=== PATIENT | male | born 1960 | race Caucasian/White ===

== ENCOUNTER → 2016-07-03 | Outpatient (CLI) | payer BC ==
[~2016-07-03] MED LIST: /WARF25TA; PERC5TAB8
[2016-07-03 12:12] LABS: ALKALINE PHOSPHATASE 104 U/L (45-117); ALT/SGPT 29 U/L (12-78); ANION GAP 8 MEQ/L (8-16); AST/SGOT 19 U/L (15-37); BILIRUBIN,TOTAL 0.6 MG/DL (0.2-1.0); BLOOD UREA NITROGEN 15 MG/DL (7-18); CALCIUM LEVEL 8.9 MG/DL (8.5-10.1); CARBON DIOXIDE LEVEL 28 MEQ/L (21-32); CHLORIDE LEVEL 104 MEQ/L (98-107); CHOLESTEROL LEVEL 251 MG/DL (<200); CREATININE FOR GFR 1.13 MG/DL (0.70-1.30); GLOMERULAR FILTRATION RATE > 60.0 (>56); GLUCOSE, FASTING 92 MG/DL (70-105); POTASSIUM SERUM 4.9 MEQ/L (3.5-5.1); SODIUM LEVEL 140 MEQ/L (136-145); TOTAL PROTEIN 7.1 GM/DL (6.4-8.2); TRIGLYCERIDES LEVEL 108 MG/DL (<150)
[2016-07-03 12:13] LABS: ALBUMIN 4.2 GM/DL (3.2-5.2); ALBUMIN/GLOBULIN RATIO 1.45 (1.00-1.93)
[2016-07-05 00:10] LABS: PSA TOTAL 0.4 ng/mL (0.0-4.0)
== END ==
LOC: M LRY 10:28
PROVIDERS: ATTEND Nurse Practitioner Family
DX: Z12.5 Encounter for screening for malignant neoplasm of prostate (principal); E55.9 Vitamin D deficiency, unspecified; E78.5 Hyperlipidemia, unspecified

== ENCOUNTER → 2016-09-13 | Outpatient (CLI) | payer BC ==
[2016-09-13 18:09] LABS: ALBUMIN 4.2 GM/DL (3.2-5.2); ALBUMIN/GLOBULIN RATIO 1.24 (1.00-1.93); ALKALINE PHOSPHATASE 111 U/L (45-117); ALT/SGPT 36 U/L (12-78); ANION GAP 7 MEQ/L (8-16); AST/SGOT 13 U/L (15-37); BILIRUBIN,TOTAL 0.7 MG/DL (0.2-1.0); BLOOD UREA NITROGEN 18 MG/DL (7-18); CALCIUM LEVEL 9.2 MG/DL (8.5-10.1); CARBON DIOXIDE LEVEL 28 MEQ/L (21-32); CHLORIDE LEVEL 107 MEQ/L (98-107); CHOLESTEROL LEVEL 171 MG/DL (<200); CREATININE FOR GFR 0.98 MG/DL (0.70-1.30); GLOMERULAR FILTRATION RATE > 60.0 (>56); GLUCOSE, FASTING 90 MG/DL (70-105); SODIUM LEVEL 142 MEQ/L (136-145); TOTAL PROTEIN 7.6 GM/DL (6.4-8.2); TRIGLYCERIDES LEVEL 70 MG/DL (<150)
== END ==
LOC: M LRY 10:49
DX: E78.5 Hyperlipidemia, unspecified (principal)

== ENCOUNTER → 2017-08-28 | Outpatient (CLI) | payer BC ==
[2017-08-28 11:32] LABS: BASO % 0.3 % (0.0-1.0); EOS # 0.2 10^3/uL (0.0-0.50); EOS % 3.7 % (0.0-3.0); HEMATOCRIT 46.2 % (42.0-52.0); IMMATURE GRANULOCYTE % 0.3 % (0-3.0); LYMPH # 1.1 10^3/uL (1.5-4.5); MEAN CORPUSCULAR HGB CONC 34.6 g/dl (32.0-36.5); MEAN CORPUSCULAR VOLUME 86.7 fl (80.0-96.0); MONO # 0.4 10^3/uL (0.0-0.8); MONO % 7.7 % (0.0-5.0); PLATELET COUNT, AUTOMATED 257 10^3/uL (150-450); RED BLOOD COUNT 5.33 10^6/uL (4.30-6.10); RED CELL DISTRIBUTION WIDTH 12.9 % (11.5-14.5); WHITE BLOOD COUNT 5.7 10^3/uL (4.0-10.0)
[2017-08-28 11:51] LABS: TOTAL 25(OH) VITAMIN D 37.6 NG/ML (30.0-100.0)
[2017-08-28 11:52] LABS: ALBUMIN 4.1 GM/DL (3.2-5.2); ALBUMIN/GLOBULIN RATIO 1.24 (1.00-1.93); ALKALINE PHOSPHATASE 111 U/L (45-117); ALT/SGPT 31 U/L (12-78); ANION GAP 3 MEQ/L (8-16); AST/SGOT 17 U/L (7-37); BILIRUBIN,TOTAL 0.7 MG/DL (0.2-1.0); BLOOD UREA NITROGEN 16 MG/DL (7-18); CALCIUM LEVEL 8.9 MG/DL (8.5-10.1); CARBON DIOXIDE LEVEL 29 MEQ/L (21-32); CHLORIDE LEVEL 110 MEQ/L (98-107); CHOLESTEROL LEVEL 161 MG/DL (<200); CREATININE FOR GFR 1.15 MG/DL (0.70-1.30); GLOMERULAR FILTRATION RATE > 60.0 (>56); GLUCOSE, FASTING 97 MG/DL (70-100); HDL CHOLESTEROL 46 MG/DL (>40); LDL CHOLESTEROL 93.6 MG/DL (<100); NON-HDL-C 115 MG/DL; POTASSIUM SERUM 4.5 MEQ/L (3.5-5.1); SODIUM LEVEL 142 MEQ/L (136-145); TOTAL PROTEIN 7.4 GM/DL (6.4-8.2); TRIGLYCERIDES LEVEL 107 MG/DL (<150)
[2017-08-29 14:15] LABS: PSA TOTAL 0.6 ng/mL (0.0-4.0)
== END ==
LOC: M LRY 08:29
DX: K21.9 Gastro-esophageal reflux disease without esophagitis (principal); Z12.5 Encounter for screening for malignant neoplasm of prostate; E55.9 Vitamin D deficiency, unspecified; E78.5 Hyperlipidemia, unspecified
CPT/HCPCS: 80053

== ENCOUNTER → 2018-02-24 | Outpatient (CLI) | payer BC ==
[2018-02-24 11:37] LABS: BASO % 0.2 % (0.0-1.0); EOS # 0.2 10^3/uL (0.0-0.50); EOS % 4.8 % (0.0-3.0); HEMATOCRIT 43.8 % (42.0-52.0); HEMOGLOBIN 15.5 g/dl (13.5-17.5); IMMATURE GRANULOCYTE % 0.2 % (0-3.0); LYMPH # 1.1 10^3/uL (1.5-4.5); LYMPH % 22.8 % (24.0-44.0); MEAN CORPUSCULAR HEMOGLOBIN 30.5 pg (27.0-33.0); MEAN CORPUSCULAR HGB CONC 35.4 g/dl (32.0-36.5); MEAN CORPUSCULAR VOLUME 86.1 fl (80.0-96.0); MONO # 0.4 10^3/uL (0.0-0.8); MONO % 8.7 % (0.0-5.0); NEUTROPHILS # 2.9 10^3/uL (1.8-7.7); NEUTROPHILS % 63.3 % (36.0-66.0); PLATELET COUNT, AUTOMATED 235 10^3/uL (150-450); RED BLOOD COUNT 5.09 10^6/uL (4.30-6.10); RED CELL DISTRIBUTION WIDTH 12.5 % (11.5-14.5); WHITE BLOOD COUNT 4.6 10^3/uL (4.0-10.0)
[2018-02-24 12:15] LABS: ALBUMIN 3.8 GM/DL (3.2-5.2); ALBUMIN/GLOBULIN RATIO 1.27 (1.00-1.93); ALKALINE PHOSPHATASE 102 U/L (45-117); ALT/SGPT 34 U/L (12-78); ANION GAP 6 MEQ/L (8-16); AST/SGOT 16 U/L (7-37); BILIRUBIN,TOTAL 0.7 MG/DL (0.2-1.0); BLOOD UREA NITROGEN 12 MG/DL (7-18); CALCIUM LEVEL 8.6 MG/DL (8.5-10.1); CARBON DIOXIDE LEVEL 25 MEQ/L (21-32); CHLORIDE LEVEL 108 MEQ/L (98-107); CHOLESTEROL LEVEL 158 MG/DL (<200); CHOLESTEROL RISK RATIO 3.224 (<5); CREATININE FOR GFR 1.06 MG/DL (0.70-1.30); GLOMERULAR FILTRATION RATE > 60.0 (>56); GLUCOSE, FASTING 97 MG/DL (70-100); HDL CHOLESTEROL 49 MG/DL (>40); LDL CHOLESTEROL 90 MG/DL (<100); NON-HDL-C 109 MG/DL; POTASSIUM SERUM 4.8 MEQ/L (3.5-5.1); SODIUM LEVEL 139 MEQ/L (136-145); TOTAL PROTEIN 6.8 GM/DL (6.4-8.2); TRIGLYCERIDES LEVEL 94 MG/DL (<150)
== END ==
LOC: M LRY 09:05
DX: K21.9 Gastro-esophageal reflux disease without esophagitis (principal); E55.9 Vitamin D deficiency, unspecified; E78.5 Hyperlipidemia, unspecified
CPT/HCPCS: 80053

== ENCOUNTER → 2018-09-19 | Outpatient (CLI) | payer BC ==
[~2018-09-19] MED LIST changes: -/WARF25TA; +COUM1TAB18
[2018-09-19 18:14] LABS: BASO % 0.2 % (0.0-1.0); EOS # 0.3 10^3/uL (0.0-0.50); EOS % 5.8 % (0.0-3.0); HEMATOCRIT 46.2 % (42.0-52.0); HEMOGLOBIN 15.5 g/dl (13.5-17.5); LYMPH # 1.2 10^3/uL (1.5-4.5); LYMPH % 24.9 % (24.0-44.0); MEAN CORPUSCULAR HEMOGLOBIN 29.4 pg (27.0-33.0); MEAN CORPUSCULAR HGB CONC 33.5 g/dl (32.0-36.5); MEAN CORPUSCULAR VOLUME 87.7 fl (80.0-96.0); MONO # 0.3 10^3/uL (0.0-0.8); MONO % 7.1 % (0.0-5.0); NEUTROPHILS # 2.9 10^3/uL (1.8-7.7); NEUTROPHILS % 61.8 % (36.0-66.0); PLATELET COUNT, AUTOMATED 252 10^3/uL (150-450); RED BLOOD COUNT 5.27 10^6/uL (4.30-6.10); WHITE BLOOD COUNT 4.7 10^3/uL (4.0-10.0)
[2018-09-19 18:26] LABS: ALT/SGPT 33 U/L (12-78); BILIRUBIN,TOTAL 0.7 MG/DL (0.2-1.0); BLOOD UREA NITROGEN 17 MG/DL (7-18); CALCIUM LEVEL 8.9 MG/DL (8.8-10.2); CARBON DIOXIDE LEVEL 30 MEQ/L (21-32); CHLORIDE LEVEL 105 MEQ/L (98-107); CHOLESTEROL LEVEL 151 MG/DL (<200); CHOLESTEROL RISK RATIO 3.871 (<5); CREATININE FOR GFR 1.12 MG/DL (0.70-1.30); GLOMERULAR FILTRATION RATE > 60.0 (>49); GLUCOSE, FASTING 102 MG/DL (70-100); HDL CHOLESTEROL 39 MG/DL (>40); LDL CHOLESTEROL 96 MG/DL (<100); NON-HDL-C 112 MG/DL; POTASSIUM SERUM 4.9 MEQ/L (3.5-5.1); SODIUM LEVEL 141 MEQ/L (136-145); TOTAL PROTEIN 6.9 GM/DL (6.4-8.2); TRIGLYCERIDES LEVEL 78 MG/DL (<150)
[2018-09-21 10:07] LABS: TOTAL 25(OH) VITAMIN D 49.6 NG/ML (30.0-100.0)
[2018-09-22 14:11] LABS: PSA TOTAL 0.8 ng/mL (0.0-4.0)
== END ==
LOC: M WUC 08:27
PROVIDERS: ATTEND Nurse Practitioner Family
DX: E78.5 Hyperlipidemia, unspecified (principal); E55.9 Vitamin D deficiency, unspecified; K21.9 Gastro-esophageal reflux disease without esophagitis

== ENCOUNTER → 2019-10-04 | Outpatient (CLI) | payer BC, OTHER, SELFPAY ==
[~2019-10-04] MED LIST changes: +ATOR40TA75
[2019-10-04 16:31] LABS: ALBUMIN 3.8 GM/DL (3.2-5.2); ALT/SGPT 25 U/L (12-78); BILIRUBIN,TOTAL 0.4 MG/DL (0.2-1.0); BLOOD UREA NITROGEN 16 MG/DL (7-18); CALCIUM LEVEL 8.7 MG/DL (8.8-10.2); CARBON DIOXIDE LEVEL 27 MEQ/L (21-32); CHLORIDE LEVEL 110 MEQ/L (98-107); CHOLESTEROL LEVEL 253 MG/DL (<200); CHOLESTEROL RISK RATIO 5.382 (<5); CREATININE FOR GFR 1.12 MG/DL (0.70-1.30); FREE T4 0.97 NG/DL (0.76-1.46); GLOMERULAR FILTRATION RATE > 60.0 (>49); GLUCOSE, FASTING 94 MG/DL (70-100); HDL CHOLESTEROL 47 MG/DL (>40); LDL CHOLESTEROL 182 MG/DL (<100); NON-HDL-C 206 MG/DL; POTASSIUM SERUM 5.1 MEQ/L (3.5-5.1); SODIUM LEVEL 142 MEQ/L (136-145); TRIGLYCERIDES LEVEL 122 MG/DL (<150)
[2019-10-04 16:39] LABS: BASO % 0.2 % (0.0-1.0); EOS # 0.2 10^3/uL (0.0-0.5); EOS % 4.3 % (0.0-3.0); HEMATOCRIT 44.5 % (42.0-52.0); LYMPH # 1.1 10^3/uL (1.5-5.0); LYMPH % 23.8 % (24.0-44.0); MEAN CORPUSCULAR HEMOGLOBIN 29.9 pg (27.0-33.0); MEAN CORPUSCULAR HGB CONC 33.7 g/dl (32.0-36.5); MEAN CORPUSCULAR VOLUME 88.6 fl (80.0-96.0); MONO # 0.4 10^3/uL (0.0-0.8); MONO % 8.6 % (0.0-5.0); NEUTROPHILS # 2.9 10^3/uL (1.5-8.5); NEUTROPHILS % 62.9 % (36.0-66.0); PLATELET COUNT, AUTOMATED 244 10^3/uL (150-450); RED BLOOD COUNT 5.02 10^6/uL (4.30-6.10); WHITE BLOOD COUNT 4.7 10^3/uL (4.0-10.0)
[2019-10-05 10:31] LABS: TOTAL 25(OH) VITAMIN D 63.6 NG/ML (30.0-100.0)
== END ==
LOC: M LRY 09:09
PROVIDERS: ATTEND Physician Assistant
DX: L82.1 Other seborrheic keratosis (principal); R03.0 Elevated blood-pressure reading, without diagnosis of hypertension; E78.5 Hyperlipidemia, unspecified

== ENCOUNTER → 2020-01-11 | Outpatient (CLI) | payer OTHER ==
[2020-01-11 10:28] LABS: ALBUMIN 3.8 GM/DL (3.2-5.2); ALT/SGPT 25 U/L (12-78); BILIRUBIN,TOTAL 0.5 MG/DL (0.2-1.0); BLOOD UREA NITROGEN 14 MG/DL (7-18); CARBON DIOXIDE LEVEL 27 MEQ/L (21-32); CHLORIDE LEVEL 110 MEQ/L (98-107); CHOLESTEROL LEVEL 162 MG/DL (<200); CHOLESTEROL RISK RATIO 3.056 (<5); CREATININE FOR GFR 1.13 MG/DL (0.70-1.30); GLOMERULAR FILTRATION RATE > 60.0 (>49); GLUCOSE, FASTING 100 MG/DL (70-100); HDL CHOLESTEROL 53 MG/DL (>40); LDL CHOLESTEROL 95 MG/DL (<100); NON-HDL-C 109 MG/DL; POTASSIUM SERUM 4.5 MEQ/L (3.5-5.1); SODIUM LEVEL 141 MEQ/L (136-145); TRIGLYCERIDES LEVEL 72 MG/DL (<150)
== END ==
LOC: M LAB 09:32
PROVIDERS: ATTEND Physician Assistant
DX: E66.3 Overweight (principal); E78.00 Pure hypercholesterolemia, unspecified; Z68.29 Body mass index [BMI] 29.0-29.9, adult

== ENCOUNTER → 2020-01-26 | Outpatient (CLI) | payer OTHER | LOC: M LABSMTC 11:34 | PROVIDERS: ATTEND Anesthesiology | DX: Z01.812 Encounter for preprocedural laboratory examination (principal); Z20.828 Contact with and (suspected) exposure to other viral communicable diseases | CPT/HCPCS: C9803; U0003 ==

== ENCOUNTER 2020-01-31 07:01 | Day surgery (SDC) | payer OTHER ==
[~2020-01-31] VITALS: Ht 180.3 cm; Wt 98.4 kg
[~2020-01-31 07:01] MED LIST changes: +NS 1,000 ML IV ONE
[2020-01-31] MEDS ORDERED: LIDOCAINE 2% 100MG/5ML SDV (FOR ANES.) As Ordered ONE (08:47)
[2020-01-31] MEDS ORDERED: propofoL 200 MG/20 ML VIAL As Ordered ONE (08:52)
--- NOTE | 2020-01-31 09:08 | ROOR ---
Patient Name: Shilo Erazo Procedure Date: 01/31/2020 8:23 AM Date of : 1960 Age: 59 [facility]: [facility] Gender: Male Note Status: Finalized Procedure: Colonoscopy Indications: Screening for colorectal malignant neoplasm, High risk colon cancer surveillance: Personal history of colonic polyps Providers: Toro Gross MD Referring MD: GLENIS Hneriquez Requesting Provider: Medicines: Monitored Anesthesia Care Complications: No immediate complications. Procedure: Pre-Anesthesia Assessment: - Prior to the procedure, a History and Physical was performed, and patient medications and allergies were reviewed. The patient is competent. The risks and benefits of the procedure and the sedation options and risks were discussed with the patient. All questions were answered and informed consent was obtained. Patient identification and proposed procedure were verified by the physician, the nurse and the anesthesiologist in the procedure room. Mental Status Examination: alert and oriented. Airway Examination: normal oropharyngeal airway and neck mobility. Respiratory Examination: clear to auscultation. CV Examination: normal. Prophylactic Antibiotics: The patient does not require prophylactic antibiotics. Prior Anticoagulants: The patient has taken no previous anticoagulant or antiplatelet agents. ASA Grade Assessment: III - A patient with severe systemic disease. After reviewing the risks and benefits, the patient was deemed in satisfactory condition to undergo the procedure. The anesthesia plan was to use monitored anesthesia care (MAC). Immediately prior to administration of medications, the patient was re-assessed for adequacy to receive sedatives. The heart rate, respiratory rate, oxygen saturations, blood pressure, adequacy of pulmonary ventilation, and response to care were monitored throughout the procedure. The physical status of the patient was re-assessed after the procedure. The Colonoscope was introduced through the anus and advanced to the terminal ileum, with identification of the appendiceal orifice and IC valve. The colonoscopy was performed without difficulty. The patient tolerated the procedure well. The quality of the bowel preparation was adequate to identify polyps 6 mm and larger in size and fair. The terminal ileum, ileocecal valve, appendiceal orifice, and rectum were photographed. Scope insertion time was 3 minutes. Scope withdrawal time was 9 minutes. The total duration of the procedure was 12 minutes. Findings: The perianal and digital rectal examinations were normal. The terminal ileum appeared normal. A 6 mm polyp was found in the rectum. The polyp was sessile. The polyp was removed with a cold snare. Resection and retrieval were complete. Verification of patient identification for the specimen was done by the physician and nurse using the patient's name, date and medical record number. Estimated blood loss was minimal. External and internal hemorrhoids were found during retroflexion. The hemorrhoids were medium-sized. A moderate amount of semi-liquid stool was found from sigmoid to transverse colon, interfering with visualization. Lavage of the area was performed using a large amount of sterile water, resulting in clearance with good visualization. Impression: - Preparation of the colon was fair. - The examined portion of the ileum was normal. - One 6 mm polyp in the rectum, removed with a cold snare. Resected and retrieved. - External and internal hemorrhoids. - Stool from sigmoid to transverse colon. Recommendation: - Patient has a contact number available for emergencies. The signs and symptoms of potential delayed complications were discussed with the patient. Return to normal activities tomorrow. Written discharge instructions were provided to the patient. - High fiber diet. - Continue present medications. - Await pathology results. - Repeat colonoscopy in 5 years for surveillance based on pathology results. - Telephone GI clinic for pathology results in 2 weeks. - Return to primary care physician. Toro Gross MD Toro Gross MD 01/31/2020 9:07:40 AM Electronically signed by Toro Gross MD Number of Addenda: 0 Note Initiated On: 01/31/2020 8:23 AM Estimated Blood Loss: Estimated blood loss: none.
[2020-01-31 09:15] VITALS: BP 140/79
== END 2020-01-31 09:27 | disposition home or self-care (01) ==
LOC: M OPP 07:01
PROVIDERS: ATTEND Internal Medicine Gastroenterology
DX: Z12.11 Encounter for screening for malignant neoplasm of colon (principal); Z86.010 Personal history of colon polyps; K63.5 Polyp of colon; K64.8 Other hemorrhoids; Z91.030 Bee allergy status; Z79.899 Other long term (current) drug therapy; Z82.49 Family history of ischemic heart disease and other diseases of the circulatory system

== ENCOUNTER → 2020-07-11 | Outpatient (REF) | payer OTHER ==
[~2020-07-11] MED LIST changes: -NS 1,000 ML IV ONE
[2020-07-11 16:31] LABS: BASO % 0.2 % (0.0-1.0); EOS # 0.2 10^3/uL (0.0-0.5); EOS % 3.5 % (0.0-3.0); HEMATOCRIT 47.5 % (42.0-52.0); HEMOGLOBIN 16.2 g/dl (13.5-17.5); LYMPH % 20.7 % (24.0-44.0); MEAN CORPUSCULAR HEMOGLOBIN 29.8 pg (27.0-33.0); MEAN CORPUSCULAR HGB CONC 34.1 g/dl (32.0-36.5); MEAN CORPUSCULAR VOLUME 87.5 fl (80.0-96.0); MONO # 0.4 10^3/uL (0.0-0.8); MONO % 7.4 % (2.0-8.0); NEUTROPHILS # 3.3 10^3/uL (1.5-8.5); PLATELET COUNT, AUTOMATED 228 10^3/uL (150-450); RED BLOOD COUNT 5.43 10^6/uL (4.30-6.10); WHITE BLOOD COUNT 4.9 10^3/uL (4.0-10.0)
[2020-07-11 17:06] LABS: ALBUMIN 4.2 GM/DL (3.2-5.2); ALT/SGPT 34 U/L (12-78); BILIRUBIN,TOTAL 0.5 MG/DL (0.2-1.0); BLOOD UREA NITROGEN 18 MG/DL (7-18); CALCIUM LEVEL 9.4 MG/DL (8.8-10.2); CARBON DIOXIDE LEVEL 28 MEQ/L (21-32); CHLORIDE LEVEL 106 MEQ/L (98-107); CHOLESTEROL LEVEL 179 MG/DL (<200); CHOLESTEROL RISK RATIO 3.653 (<5); CREATININE FOR GFR 1.05 MG/DL (0.70-1.30); GLOMERULAR FILTRATION RATE > 60.0 (>49); GLUCOSE, FASTING 107 MG/DL (70-100); HDL CHOLESTEROL 49 MG/DL (>40); LDL CHOLESTEROL 93 MG/DL (<100); NON-HDL-C 130 MG/DL; POTASSIUM SERUM 4.9 MEQ/L (3.5-5.1); SODIUM LEVEL 139 MEQ/L (136-145); TOTAL PROTEIN 7.3 GM/DL (6.4-8.2); TRIGLYCERIDES LEVEL 187 MG/DL (<150)
[2020-07-11 17:13] LABS: MALB URINE SIEMENS 8.3 MG/L; MAU/CREAT RATIO 6.2 MCG/MG (0.0-30.0)
== END ==
LOC: M LAB REF 15:51
PROVIDERS: ATTEND Pediatrics
DX: I10 Essential (primary) hypertension (principal)

== ENCOUNTER 2021-01-26 22:14 | Inpatient (IN) | payer OTHER ==
[~2021-01-26] VITALS: Ht 180.3 cm; Wt 101.5 kg
[2021-01-26] MEDS ORDERED: LISI10TA22 PO (22:35)
[2021-01-26 23:19] LABS: BASO % 0.2 % (0.0-1.0); EOS # 0.1 10^3/uL (0.0-0.5); EOS % 0.8 % (0.0-3.0); HEMATOCRIT 44.7 % (42.0-52.0); HEMOGLOBIN 15.1 g/dl (13.5-17.5); LYMPH # 0.6 10^3/uL (1.5-5.0); LYMPH % 5.5 % (24.0-44.0); MEAN CORPUSCULAR HEMOGLOBIN 29.8 pg (27.0-33.0); MEAN CORPUSCULAR HGB CONC 33.8 g/dl (32.0-36.5); MEAN CORPUSCULAR VOLUME 88.3 fl (80.0-96.0); MONO # 0.5 10^3/uL (0.0-0.8); MONO % 4.4 % (2.0-8.0); NEUTROPHILS # 10.2 10^3/uL (1.5-8.5); NEUTROPHILS % 88.9 % (36.0-66.0); PLATELET COUNT, AUTOMATED 237 10^3/uL (150-450); RED BLOOD COUNT 5.06 10^6/uL (4.30-6.10); WHITE BLOOD COUNT 11.5 10^3/uL (4.0-10.0)
[2021-01-26 23:55] LABS: ALBUMIN 3.8 GM/DL (3.2-5.2); ALT/SGPT 31 U/L (12-78); BILIRUBIN,DIRECT 0.1 MG/DL (0.0-0.2); BILIRUBIN,TOTAL 0.5 MG/DL (0.2-1.0); BLOOD UREA NITROGEN 18 MG/DL (7-18); CALCIUM LEVEL 9.2 MG/DL (8.8-10.2); CARBON DIOXIDE LEVEL 25 MEQ/L (21-32); CHLORIDE LEVEL 104 MEQ/L (98-107); CK-MB VALUE MASS < 1.0 NG/ML (<3.6); CPK CREATINE PHOSPHOKINASE 147 U/L (39-308); CREATININE FOR GFR 1.34 MG/DL (0.70-1.30); GLOMERULAR FILTRATION RATE 57.5 (>49); GLUCOSE, FASTING 176 MG/DL (70-100); MB/CK RELATIVE INDEX 0.68 (< OR =4); POTASSIUM SERUM 4.4 MEQ/L (3.5-5.1); SODIUM LEVEL 138 MEQ/L (136-145); TROPONIN I < 0.02 NG/ML (< 0.10)
--- NOTE | 2021-01-27 00:27 | REPVR ---
PROCEDURE INFORMATION: Exam: CT Head Without Contrast Exam date and time: 01/26/2021 10:56 PM Age: 60 years old Clinical indication: Altered mental status/memory loss; Additional info: CVA - nursing interventions must not delay CT TECHNIQUE: Imaging protocol: Computed tomography of the head without contrast. Radiation optimization: All CT scans at this facility use at least one of these dose optimization techniques: automated exposure control; mA and/or kV adjustment per patient size (includes targeted exams where dose is matched to clinical indication); or iterative reconstruction. COMPARISON: No relevant prior studies available. FINDINGS: Brain: There is no CT evidence for an acute large vessel territorial infarct. No acute intracranial hemorrhage is seen. No mass, mass effect, midline shift, or herniation is noted. Cerebral ventricles: The ventricles are mildly dilated in proportion to the sulci, which is compatible with mild generalized cerebral volume loss. Paranasal sinuses: The imaged portions of the sinuses are well aerated. No air-fluid levels are noted in the sinuses. Mastoid air cells: The imaged portions of the mastoid air cells are well aerated. Vasculature: There are atherosclerotic calcifications of the intracranial portion of the internal carotid arteries. Bones/joints: The skull is intact. No suspicious osteolytic or osteoblastic lesion. Soft tissues: Unremarkable. No soft tissue fluid collection. IMPRESSION: No acute intracranial abnormality. Electronically signed by: Reji Lira On 01/27/2021 00:26:56 AM
--- NOTE | 2021-01-27 00:30 | REPVR ---
PROCEDURE INFORMATION: Exam: XR Chest Exam date and time: 01/26/2021 11:16 PM Age: 60 years old Clinical indication: CVA TECHNIQUE: Imaging protocol: XR of the chest. Views: 1 view. COMPARISON: No relevant prior studies available. FINDINGS: Lungs: Unremarkable. No consolidation. No pulmonary edema. Pleural spaces: Unremarkable. No pleural effusion. No pneumothorax. Heart/Mediastinum: Unremarkable. No cardiomegaly. Bones/joints: There is evidence for a prior right acromioclavicular separation injury, with widening of the right acromioclavicular joint space, widening of the right coracoclavicular space, and ossification of the right coracoclavicular ligament and right superior acromioclavicular ligament. There is mild osteoarthritis of the left acromioclavicular joint. IMPRESSION: No radiographic evidence for an acute cardiopulmonary process. Electronically signed by: Reji Lira On 01/27/2021 00:30:19 AM
[2021-01-27 00:46] LABS: ACETAMINOPHEN LEVEL < 2.0 UG/ML (10.0-30.0); SALICYLATE LEVEL < 1.7 MG/DL (5.0-30.0)
[2021-01-27 00:47] LABS: ETHYL ALCOHOL (ETHANOL) < 0.003 % (0.000-0.010)
--- NOTE | 2021-01-27 01:33 | REPVR ---
PROCEDURE INFORMATION: Exam: XR Left Knee Exam date and time: 01/27/2021 1:12 AM Age: 60 years old Clinical indication: Swelling, pain, ? fall TECHNIQUE: Imaging protocol: XR Left knee. Views: 4 or more views. COMPARISON: No relevant prior studies available. FINDINGS: Bones/joints: There is no fracture or dislocation of the left knee. The joint spaces and alignment are maintained. Incidental note is made of a small bone island in the left medial femoral condyle. Soft tissues: There is soft tissue swelling along the anterior aspect of the left knee. There is a spur arising from the superior pole of the patella at the insertion of the left quadriceps tendon, which is compatible with a left quadriceps enthesopathy. IMPRESSION: Soft tissue swelling along the anterior aspect of the left knee, but no fracture or dislocation. Electronically signed by: Reji Lira On 01/27/2021 01:32:54 AM
--- NOTE | 2021-01-27 01:43 | REPVR ---
PROCEDURE INFORMATION: Exam: XR Right Ankle Exam date and time: 01/27/2021 1:12 AM Age: 60 years old Clinical indication: Swelling, pain, ? fall TECHNIQUE: Imaging protocol: XR Right ankle. Views: 3 or more views. COMPARISON: No relevant prior studies available. FINDINGS: Bones/joints: There is a small calcific density anterior to the superior aspect of the body of the right talus, which is best seen in the lateral view, and may represent an avulsion injury. The joint spaces and alignment are maintained. Incidental note is made of bone islands in the right talus and cuboid. Soft tissues: There is soft tissue swelling along the medial and lateral aspect of the right ankle. There is a posterior calcaneal spur at the insertion of the Achilles tendon, which is compatible with a right Achilles enthesopathy. There is a plantar calcaneal spur at the origin of the right plantar fascia. IMPRESSION: 1. Small calcific density anterior to the superior aspect of the body of the right talus, which is best seen in the lateral view, and may represent an avulsion injury of uncertain age. 2. Soft tissue swelling along the medial and lateral aspect of the right ankle. PROCEDURE INFORMATION: Exam: XR Left Ankle Exam date and time: 01/27/2021 1:12 AM Age: 60 years old Clinical indication: Swelling, pain, ? fall TECHNIQUE: Imaging protocol: XR Left ankle. Views: 3 or more views. COMPARISON: No relevant prior studies available. FINDINGS: Bones/joints: There is no fracture or dislocation of the left ankle. The joint spaces and alignment are maintained. Incidental note is made of a bone island in the left distal tibia. Soft tissues: There is a posterior calcaneal spur at the insertion of the Achilles tendon, which is compatible with a left Achilles enthesopathy. There is a plantar calcaneal spur at the origin of the left plantar fascia. IMPRESSION: No fracture or dislocation of the left ankle. Electronically signed by: Reji Lira On 01/27/2021 01:42:47 AM
[2021-01-27 02:38] LABS: AMPHETAMINES LEVEL URINE NEGATIVE (NEGATIVE); BARBITURATES URINE NEGATIVE (NEGATIVE); BENZODIAZEPINES URINE NEGATIVE (NEGATIVE); CANNABINOIDS URINE NEGATIVE (NEGATIVE); COCAINE METABOLITE URINE NEGATIVE (NEGATIVE); METHADONE URINE NEGATIVE (NEGATIVE); OPIATES URINE NEGATIVE (NEGATIVE); PHENCYCLIDINE URINE NEGATIVE (NEGATIVE)
[2021-01-27 02:49] LABS: RSV AMPLIFICATION NEGATIVE (NEGATIVE)
--- NOTE | 2021-01-27 03:45 | HPEPDOC ---
[facility] Medical History & Physical Date of Admission Jan 27, 2021 Date of Service: Jan 27, 2021 Attending Physician: SHEY VANN MD History and Physical CHIEF COMPLAINT: Altered mental status and b/l ankle pain HISTORY OF PRESENT ILLNESS: is a pleasant 60yo male with notable PMHx of htn, hld, bph, c-spine arthritis who was brought to the ED late in the evening on 01/26/21 by his [place] due to altered mental status in the form of acute memory loss. The patient went out around 5 PM to go brush hogging on his property and returned a little after 7 PM. When the patient got back, his reports that he continued to stare at his phone and ask repeatedly "how did I get home?" And "can you tell me what I did today?" Patient's states that he repeated these questions at least 5 times in a 10-minute. He also was complaining of bilateral ankle pain as well as pain over his left knee and feeling as though his right knee was swollen. The patient himself has no memory of brush hogging. After the 10 minutes of repeated questions, patient's felt it was best that he be evalu ated in the ED. On presentation the ED, patient reported some associated neck stiffness, left side of the neck more so than the right which resolved at the time of admission and evaluation. He had never had a similar prior episode of acute memory loss. His most recent medication change was adding a blood pressure medication, but he reports that this was over 90 days ago. He denies any recent significant travel, exposure to known sick contacts, tick and/or other insect bites, use of illicit substances or alcohol, or history of seizures. Patient does state that he has some moderate amount of stress related to an activity at taoism but denies it having any significant effect on his mood. Of note, the patient reports that about a month ago he was working outside on some [employer] and f ell approximately 20 feet to grass and dirt below. He states that a piece of steel fell down with him, and one foot hit the steel while the other impacted the ground. He also got one of his arms caught up as he was falling and has had some tenderness under the right axilla since. REVIEW OF SYSTEMS: CONSTITUTIONAL: Denies any recent fever, chills, night sweats, or unintentional change in weight. HEENT: Reports chronic mild bilateral tinnitus. Denies any eye pain, blurry vision, double vision, ear pain, dysphagia, odynophagia. CARDIOVASCULAR: Denies any chest pain, chest pressure, or palpitations RESPIRATORY: Denies shortness of breath, cough, or pleuritic chest pain GASTROINTESTINAL: Denies abdominal pain, nausea, vomiting, diarrhea, constipation, blood in stool GENITOURINARY: Denies dysuria or hematuria SKIN: Denies any recent rashes or known insect bites MUSCULOSKELETAL: Reports moderate pain of bilateral ankles, left knee, and the feeling as though his right knee is swollen with no associated discomfort. He did report some neck stiffness (left side of the neck greater than the right) but states this has resolved. NEUROLOGICAL: Reports the inability to remember his activities between 5 and 7 PM on the afternoon/evening of 01/26 as reported in HPI. Denies any headache, numbness or paresthesias of extremities, difficulty focusing/word finding/concentration PSYCHIATRIC: Reports some recent stress through his taoism but does not feel as though his mood has been significantly affected. ENDOCRINE: Denies any heat or cold intolerance. HEMATOLOGIC: Denies any easy bleeding or bruising not associated with his recent fall last month LYMPHATIC: Denies any new lumps or bumps. PAST MEDICAL/ SURGICAL HISTORY: Hypertension Hyperlipidemia BPH Cervical spine arthritis Left hip fracture surgery with hardware placement, 2007 SOCIAL HISTORY: . Lives with his in [place]. 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 He and his have 2 adopted children. His 95-year-old mother also lives in an adjoining structure to their home. He denies any current or former tobacco product use. He denies any current use of alcohol and quit drinking many years ago with no prior history of alcohol abuse or need for hospitalization due to alcohol int oxication or withdrawal. He reports smoking marijuana in high school but denies any other illegal drug use. FAMILY HISTORY: Father: at 56 years old; lung cancer, smoker / Mother: 95 years old and living; CHF, CKD ALLERGIES: Please see below. HOME MEDICATIONS: Please see below. PHYSICAL EXAMINATION: Vital Signs Date Time Temp Pulse Resp B/P (MAP) Pulse Ox O2 Delivery O2 Flow Rate FiO2 01/26/21 22:17 97.9 50 18 134/69 (90) 96 Room Air GENERAL APPEARANCE: Pleasant male lying upright in ED hospital bed. He does not appear to be in any acute distress. He is alert and oriented x3. HEENT: Normocephalic, atraumatic. Noninjected, anicteric sclera. PERRLA. EOMI. Oral cavity: MMM. No pharyngeal erythema or exudate appreciated. Neck: No lymphadenopathy appreciated. CARDIOVASCULAR: Regular rate, regular rhythm. Normal S1, S2. 2+ radial pulses bilaterally. LUNGS: Clear to auscultation bilaterally with no adventitious breath sounds appreciated. No accessory muscle use. Breathing room air and speaking full sentences. Symmetric chest expansion. ABDOMEN: Soft, nontender nondistended. No guarding or rigidity appreciated. Normoactive bowel sounds throughout. MUSCULOSKELETAL: 5/5 muscle strength testing of upper and lower extremities bilaterally. EXTREMITIES: There is no pitting edema of bilateral lower extremities. There is swelling without significant erythema of both the medial and lateral right malleoli. Good capillary refill. There are no significant visible lacerations over bilateral forearms. There are some isolated scratches on the anterior aspect of the left tan. NEUROLOGICAL: Patient is awake, alert and oriented to person, place, time, and situation. Cranial nerves III through XII are grossly intact. No dys diadochokinesis. Short-term memory recall is intact with the exception of the brush hogging yesterday afternoon/evening. Long-term memory recall is intact. Negative Romberg test. 2/4 L4 and S1 DTRs bilaterally. Sensation to light touch is intact of upper and lower extremities bilaterally. Nondysarthric speech. Appropriate responses to all questions and commands. PSYCHIATRIC: Mood and affect appear appropriate. Patient has good insight. LABORATORY DATA: IMAGING: Chest x-ray, 01/26/2021- FINDINGS: Lungs: Unremarkable. No consolidation. No pulmonary edema. Pleural spaces: Unremarkable. No pleural effusion. No pneumothorax. Heart/Mediastinum: Unremarkable. No cardiomegaly. Bones/joints: There is evidence for a prior right acromioclavicular separation injury, with widening of the right acromioclavicular joint space, widening of the right coracoclavicular space, and ossification of the right coracoclavicular ligament and right superior acromioclavicular ligament. There is mild osteoarthritis of the left acromioclavicular joint. IMPRESSION: No radiographic evidence for an acute cardiopulmonary process. Head CT without contrast, 01/26/2021 FINDINGS: Brain: There is no CT evidence for an acute large vessel territorial infarct. No acute intracranial hemorrhage is seen. No mass, mass effect, midline shift, or herniation is noted. Cerebral ventricles: The ventricles are mildly dilated in proportion to the sulci, which is compatible with mild generalized cerebral volume loss. Paranasal sinuses: The imaged portions of the sinuses are well aerated. No air-fluid levels are noted in the sinuses. Mastoid air cells: The imaged portions of the mastoid air cells are well aerated. Vasculature: There are atherosclerotic calcifications of the intracranial portion of the internal carotid arteries. Bones/joints: The skull is intact. No suspicious osteolytic or osteoblastic lesion. Soft tissues: Unremarkable. No soft tissue fluid collection. IMPRESSION: No a cute intracranial abnormality. Bilateral ankle x-ray, 01/27/2021FINDINGS: Bones/joints: There is no fracture or dislocation of the left ankle. The joint spaces and alignment are maintained. Incidental note is made of a bone island in the left distal tibia. Soft tissues: There is a posterior calcaneal spur at the insertion of the Achilles tendon, which is compatible with a left Achilles enthesopathy. There is a plantar calcaneal spur at the origin of the left plantar fascia. IMPRESSION: No fracture or dislocation of the left ankle. Left knee x-ray, 01/27/2021FINDINGS: Bones/joints: There is no fracture or dislocation of the left knee. The joint spaces and alignment are maintained. Incidental note is made of a small bone island in the left medial femoral condyle. Soft tissues: There is soft tissue swelling along the anterior aspect of the left knee. There is a spur arising from the superior pole of the patella at the insertion of the left quadriceps tendon, which is compatible with a left quadriceps enthesopathy. IMPRESSION: Soft tissue swelling along the anterior aspect of the left knee, but no fracture or dislocation. MICROBIOLOGY: Please see below. ASSESSMENT & PLAN: This is a 60yo male w/ h/o htn, hld, bph, and c-spine arthritis who was brought to the ED late on the evening of 01/26/21 due to altered mental status in the form of acute memory loss. He was outside working for 2 hours and had nor recollection of anything he did, delayed responsiveness to questioning, and continued to repeat the same questions over and over, per his . He also had b/l ankle and left knee pain but doesn't recall a causative event/injury. Imaging showed an indeterminate age chip of the rt talus with associated ankle swelling and labs showed mild leukocytosis (11.5) with elevated Cr and borderline RYAN. He was admitted for transient global amnesia #Transient global amnesia -Patient was outside working for 2 hours but did not recall what he did upon return and displayed decreased responsiveness to his with repetitive questioning of what he had just done.-Initial imaging in the ED was unremarkable for any brain mass, brain bleed, or any other acute intracranial abnormality. -EKG was normal sinus rhythm with incomplete right bundle branch block, but no other significant abnormalities; Tuck screen negative, TSH and ammonia WNL, and unremarkable metabolic panel and troponin. -Patient denies recent: medication changes; tick/insect bite or rash; recent travel or known exposure to sick contacts; seizure history; EtOH/illicit drug use; similar to prior acute memory loss episode -Patient did report some moderate stress related to inactivity at taoism but does not feel it has significantly affected his mood. -MRI of the brain was initially deferred as patient feels he has metal hardware in place associated with left hip fracture and surgery in 2007 -Bilateral carotid ultrasound ordered -Fall risk precautions #Elevated creatinine -initial creatinine of 1.34 -upon review, most recent baseline was about 1 (specifically, last measurement on record was 1.05) -P.o. intake encouraged; should creatinine remain where it is or increase, consider adding some fluid hydration -Home lisinopril initially held in the setting of borderline acute renal failure; can consider continuing it should repeat creatinine come down #Mild leukocytosis with absolute neutrophilia in the setting of acute memory loss -2 blood cultures ordered -Repeat CBC ordered for later this morning; urinalysis ordered #Right ankle swelling with indeterminate age talus avulsion chip on imaging -Air splint ordered in the ED -As needed Tylenol #Hypertension -Pressures moderately elevated in the ED -Oral intake encouraged and home lisinopril placed on hold in the setting of borderline acute renal failure -Should creatinine improve, consider continuing home lisinopril #Hyperlipidemia -Home atorvastatin continued #DVT prophylaxis: q8h 5,000u heparin in the setting of borderline acute renal failure CODE STATUS: Full code Disposition: Admit to [facility] for continued evaluation in the setting of transient global amnesia. Home Medications Scheduled Aspirin (Aspirin EC) 81 Mg Tablet.dr, 81 MG PO DAILY Atorvastatin Calcium (Atorvastatin Calcium) 40 Mg Tablet, 40 MG PO QHS Cholecalciferol (Vitamin D3) (Vitamin D3) 1,000 Unit Tablet, 1,000 UNITS PO DAILY Gluc Winston/Chondro Winston A/Vit C/Mn (Glucosamine Chondroitin Tab) 1 Each Tablet, 1 TAB PO DAILY Krill Oil (Krill Oil) 500 Mg Capsule, 500 MG PO DAILY L.acidoph/L.bulg/B.bif/S.therm (Bacid Caplet) 1 Each Tablet, 1 TAB PO DAILY Lisinopril (Lisinopril) 10 Mg Tablet, 10 MG PO QHS Multivitamins (Thera M Plus Tablet) 1 Each Tablet, 1 TAB PO DAILY Saw/Vit E/Sod Kirsten/Lyc/Beta/Pyg (Prostate Health Caplet) 1 Each Tablet, 1 TAB PO DAILY Turmeric Root Extract (Turmeric) 500 Mg Capsule, 500 MG PO DAILY Vitamin E (Vitamin E) 400 Unit Capsule, 400 UNIT PO DAILY Allergies Coded Allergies: bee venom protein (honey bee) (Verified Allergy, Severe, SWELLING/POSSIBLE ANAPHYLAXIS, 01/27/21) GME ATTESTATION GME ATTESTATION My faculty preceptor for this patient encounter was physically present during the encounter and was fully available. All aspects of the patient interview, examination, medical decision making process, and medical care plan development were reviewed and approved by the faculty preceptor. The faculty preceptor is aware and concurs with the plan as stated in the body of this note and will atte st to such by his/her cosignature. ATTENDING NOTE TIME OF SERVICE 522AM is a 60 yr old M w a hx of essential HTN, DLP, cervical DJD, DLP and L hip prosthetic who was brought to the ER by his for evaluation of memory loss; at the time of my assessment some of his memories were returning. He will be admitted for 1 Transient Global Amnesia (cause TBD) - telemetry, will ask the day time team to confirm whether the patient can received an MRI with his hip prosthesis, f/u add on prolactin to screen for seizure, per [employer] will order Thiamine 100mg IV (in case this is due to Wernicke's) 2 RYAN - IVF, f/u renal US and hold ACEI 3 Non-displaced fx of right talus - pain meds 4 Essential HTN - amlodipine while lisinopril is on hold rest per 's H&P MARYJO BROWN D.O. Jan 27, 2021 03:45 SHEY VANN MD Jan 27, 2021 05:51
[2021-01-27] MEDS ORDERED: GLUCTAB6 PO (05:14)
[2021-01-27] MEDS ORDERED: ASPI-161 PO (05:14)
[2021-01-27] MEDS ORDERED: BACITAB PO (05:14)
[2021-01-27] MEDS ORDERED: VITMTA PO (05:14)
[2021-01-27] MEDS ORDERED: LISI10TA22 PO (05:14)
[2021-01-27] MEDS ORDERED: ATOR40TA75 PO (05:14)
[2021-01-27] MEDS ORDERED: RA T500C2 PO (05:14)
[2021-01-27] MEDS ORDERED: D31000TA2 PO (05:14)
[2021-01-27] MEDS ORDERED: COMPTAB7 PO (05:14)
[2021-01-27] MEDS ORDERED: RA K500C PO (05:14)
[2021-01-27] MEDS ORDERED: VITA-245 PO (05:14)
[2021-01-27] MEDS ORDERED: MOM 30ML SUSPENSION UDC PO PRN (05:15)
[2021-01-27] MEDS ORDERED: HOME MED LIST COMPLETE! XX SCH (05:15)
[2021-01-27] MEDS ORDERED: MAALOX 30 ML SUSP *UDC PO PRN (05:15)
[2021-01-27] MEDS: NS 1,000 ML IV SCH ×2 (05:45→18:22)
[2021-01-27] MEDS ORDERED: THIAMINE 200MG 2ML VIAL IV ONE (05:45)
--- NOTE | 2021-01-27 06:30 | ECGEPIP ---
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
[2021-01-27 06:36] LABS: HEMATOCRIT 41.9 % (42.0-52.0); HEMOGLOBIN 14.6 g/dl (13.5-17.5); MEAN CORPUSCULAR HEMOGLOBIN 30.2 pg (27.0-33.0); MEAN CORPUSCULAR HGB CONC 34.8 g/dl (32.0-36.5); MEAN CORPUSCULAR VOLUME 86.6 fl (80.0-96.0); PLATELET COUNT, AUTOMATED 224 10^3/uL (150-450); RED BLOOD COUNT 4.84 10^6/uL (4.30-6.10); WHITE BLOOD COUNT 9.2 10^3/uL (4.0-10.0)
[2021-01-27 06:58] LABS: ALBUMIN 3.7 GM/DL (3.2-5.2); ALT/SGPT 29 U/L (12-78); BILIRUBIN,TOTAL 0.9 MG/DL (0.2-1.0); BLOOD UREA NITROGEN 16 MG/DL (7-18); CALCIUM LEVEL 8.5 MG/DL (8.8-10.2); CARBON DIOXIDE LEVEL 24 MEQ/L (21-32); CHLORIDE LEVEL 103 MEQ/L (98-107); CREATININE FOR GFR 1.17 MG/DL (0.70-1.30); GLOMERULAR FILTRATION RATE > 60.0 (>49); GLUCOSE, FASTING 140 MG/DL (70-100); POTASSIUM SERUM 3.9 MEQ/L (3.5-5.1); SODIUM LEVEL 135 MEQ/L (136-145); TOTAL PROTEIN 6.9 GM/DL (6.4-8.2)
[2021-01-27 07:05] LABS: HEMOGLOBIN A1c 5.5 %
[2021-01-27] MEDS: ACETAMINOPHEN TAB 650MG DOSE (2X325MG) PO PRN ×2 (07:30→21:27)
[2021-01-27] MEDS: HEPARIN SOD (PORCINE) 5000UNITS/ML 1ML VIAL/SYRINGE SQ SCH ×3 (07:32→21:28)
--- NOTE | 2021-01-27 08:24 | REP ---
INDICATION: transient global amnesia COMPARISON: None. TECHNIQUE: Osman scale and color Doppler evaluation using linear high frequency transducer Findings: FINDINGS: Two-dimensional osman scale and color images demonstrate normal arterial lumen with laminar flow and no appreciable narrowing. Color Doppler interrogation demonstrates normal arterial wave patterns and velocities with no significant spectral broadening. Normal flow direction is appreciated in the bilateral vertebral arteries. ICA peak systolic velocity: Right 70.6 cm/s; Left 99.5 cm/s ICA diastolic velocity: Right 21.9 cm/s; Left 38.5 cm/s ECA peak systolic velocity: Right 81.1 cm/s; Left 100.4 cm/s CCA peak systolic velocity: Right 105 cm/s; Left 128 cm/s ICA/CCA ratio: Right 0.67 cm/s; Left 0.78 cm/s IMPRESSION: No hemodynamically significant areas of narrowing or stenosis appreciated. Based on set standards narrowing falls within the less than 50% range. <Electronically signed by Tonio Melendez > 01/27/21 0890
--- NOTE | 2021-01-27 08:28 | REP ---
INDICATION: RYAN COMPARISON: None TECHNIQUE: Real time bhatt scale ultrasound examination using curved array transducer. FINDINGS: Bilateral kidneys are normal in contour, size, echogenicity, and reniform shape. No hydronephrosis, nephrolithiasis, cystic or renal mass lesion. Right kidney measures 10.6 x 4.7 x 5.4 cm. Left kidney measures 10.9 x 5.1 x 5.5 cm. Bladder is unremarkable. IMPRESSION: 1. Normal renal ultrasound. <Electronically signed by Tonio Melendez > 01/27/21 2615
[2021-01-27] MEDS: VITAMIN D 1,000 INTERNATIONAL UNITS TABLET PO SCH (09:00)
[2021-01-27] MEDS: LACTOBACILLUS ACIDOPHILUS CAP (BACID) PO SCH (11:02)
[2021-01-27] MEDS: ASPIRIN 81MG ENTERIC TABLET PO SCH (11:02)
[2021-01-27] MEDS: MULTIVITAMINS/MINERALS THERAP 1 TAB PO SCH (11:02)
[2021-01-27 14:00] VITALS: BP 144/76
[2021-01-27] MEDS: ATORVASTATIN 20 MG TAB PO SCH (21:29)
[2021-01-27 22:00] VITALS: BP 138/75
[2021-01-28] MEDS: HEPARIN SOD (PORCINE) 5000UNITS/ML 1ML VIAL/SYRINGE SQ SCH ×3 (05:16→21:17)
[2021-01-28 06:00] VITALS: BP 135/67
[2021-01-28 06:39] LABS: HEMATOCRIT 40.6 % (42.0-52.0); HEMOGLOBIN 13.7 g/dl (13.5-17.5); MEAN CORPUSCULAR HEMOGLOBIN 29.7 pg (27.0-33.0); MEAN CORPUSCULAR HGB CONC 33.7 g/dl (32.0-36.5); MEAN CORPUSCULAR VOLUME 88.1 fl (80.0-96.0); PLATELET COUNT, AUTOMATED 210 10^3/uL (150-450); RED BLOOD COUNT 4.61 10^6/uL (4.30-6.10); WHITE BLOOD COUNT 6.6 10^3/uL (4.0-10.0)
[2021-01-28] MEDS: NS 1,000 ML IV SCH (06:52)
[2021-01-28 06:56] LABS: ALT/SGPT 21 U/L (12-78); BILIRUBIN,TOTAL 0.9 MG/DL (0.2-1.0); BLOOD UREA NITROGEN 12 MG/DL (7-18); CALCIUM LEVEL 8.3 MG/DL (8.8-10.2); CARBON DIOXIDE LEVEL 26 MEQ/L (21-32); CHLORIDE LEVEL 109 MEQ/L (98-107); CREATININE FOR GFR 1.06 MG/DL (0.70-1.30); GLOMERULAR FILTRATION RATE > 60.0 (>49); GLUCOSE, FASTING 112 MG/DL (70-100); POTASSIUM SERUM 4.6 MEQ/L (3.5-5.1); SODIUM LEVEL 139 MEQ/L (136-145); TOTAL PROTEIN 6.1 GM/DL (6.4-8.2)
[2021-01-28] MEDS ORDERED: ISOVUE-370 76% 100ML VIAL As Ordered ONE (08:30)
--- NOTE | 2021-01-28 09:04 | REP ---
INDICATION: amnesia, r/o TIA. COMPARISON: None. TECHNIQUE: CT contrast dose: 100 ml of intravenous Isovue 370. Axial contrast-enhanced images were obtained from the skull base to the vertex with coronal reformations using 100 cc Isovue 370 intravenous contrast material. Maximal intensity projection and multiplanar re-formation images along with 3-D rendered imaging of the arterial vasculature. FINDINGS: Partially calcified atherosclerotic changes through the intracranial internal carotid arteries noted, but without evidence for significant narrowing or stenosis. The xifora-[id number]-Nxqyvi and visualized vertebrobasilar system appear intact and normal. Vasculature to the bilateral hemispheres appears symmetric. No obvious arteriovenous malformation or aneurysm detected. Remainder of the examination appears essentially normal. IMPRESSION: No obvious arteriovenous malformation or aneurysm. Vasculature to the bilateral hemispheres and posterior fossa appears symmetric and normal. <Electronically signed by Tonio Melendez > 01/28/21 0900
[2021-01-28] MEDS: MULTIVITAMINS/MINERALS THERAP 1 TAB PO SCH (09:45)
[2021-01-28] MEDS: ASPIRIN 81MG ENTERIC TABLET PO SCH (09:45)
[2021-01-28] MEDS: LACTOBACILLUS ACIDOPHILUS CAP (BACID) PO SCH (09:45)
[2021-01-28] MEDS: VITAMIN D 1,000 INTERNATIONAL UNITS TABLET PO SCH (09:45)
[2021-01-28 10:38] LABS: CHOLESTEROL LEVEL 154 MG/DL (<200); CHOLESTEROL RISK RATIO 3.581 (<5); HDL CHOLESTEROL 43 MG/DL (>40); LDL CHOLESTEROL 88 MG/DL (<100); NON-HDL-C 111 MG/DL; TRIGLYCERIDES LEVEL 117 MG/DL (<150)
[2021-01-28 14:00] VITALS: BP 136/73
--- NOTE | 2021-01-28 16:24 | IPNPDOC ---
Date Seen The patient was seen on 01/28/21. Progress Note SUBJECTIVE: Neuro checks negative over the evening, no episodes of amnesia. Discussed the case with neurology who suggests EEG to rule out seizures. Patient denies lightheadedness, dizziness, headache, shortness of breath or chest pain. OBJECTIVE PHYSICAL EXAMINATION: VITAL SIGNS: Please see below GENERAL APPEARANCE: AAOx3, NAD HEENT: Normocephalic, atraumatic. Noninjected, anicteric sclera. PERRLA. EOMI. Oral cavity: MMM. No pharyngeal erythema or exudate appreciated. Neck: No lymphadenopathy appreciated. CARDIOVASCULAR: RRR, Normal S1, S2. 2+ radial pulses bilaterally. LUNGS: CTAB, no w/r/r ABDOMEN: Soft, nontender nondistended. No guarding or rigidity appreciated. Normoactive bowel sounds throughout. MUSCULOSKELETAL: 5/5 muscle strength testing of upper and lower extremities bilaterally. EXTREMITIES: There is no pitting edema of bilateral lower extremities. There is swelling without significant erythema of both the medial and lateral right malleoli. Good capillary refill. There are no significant visible lacerations over bilateral forearms. There are some isolated scratches on the anterior aspect of the left tan. NEUROLOGICAL: CN 2-12 intact, no sensory or motor deficits. PSYCHIATRIC: Mood and affect appropriate LABORATORY DATA: Please see below. IMAGING: Chest x-ray, 01/26/2021- No radiographic evidence for an acute cardiopulmonary process. Head CT without contrast, 01/26/2021 No acute intracranial abnormality. Bilateral ankle x-ray, 01/27/2021 No fracture or dislocation of the left ankle. Left knee x-ray, 01/27/2021 Soft tissue swelling along the anterior aspect of the left knee, but no fracture or dislocation. MICROBIOLOGY: Please see below. ASSESSMENT & PLAN: This is a 60yo male w/ h/o htn, hld, bph, and c-spine arthritis admitted for transient global amnesia #Transient global amnesia r/o 2/2 to seizure -No prior history of seizures, no new head trauma -CTA head neg -unable to do MRI due to pt having hardware -Neuro check neg -No events on tele -EEG ordered for 01/29/21. Discussed the case with neurology. Per Dr. Chu, patient should be advised not to drive until the results of the EEG are given to him. This was discussed in great detail with the patient who understood. After the patient's EEG on 01/29/2021 the patient can likely be discharged to follow- up with neurology where they will give him the results of the study. #Dehydration- resolved -S/p hydration -Cr now wnl, never was RYAN -Continue to encourage fluids, meals. #Right ankle swelling with indeterminate age talus avulsion chip on imaging -Air splint ordered in the ED -As needed Tylenol #Hypertension -C/w ACEi, CCB #Hyperlipidemia -statin #DVT prophylaxis -heparin CODE STATUS: Full code Disposition: EEG scheduled for 01/29/2021. Plan is discharge home to follow-up with neurology and primary care doctor after study. VS, I&O, [facility] Vital Signs/I&O Vital Signs Date Time Temp Pulse Resp B/P (MAP) Pulse Ox O2 Delivery O2 Flow Rate FiO2 01/28/21 14:00 99.1 83 18 136/73 (94) 93 Room Air I&O- Last 24 Hours up to 6 AM 01/28/21 06:00 Intake Total 2795 ml Output Total 980 ml Balance 1815 ml Laboratory Data 24H LABS Laboratory Tests 2 01/28/21 05:15: Urine Color YELLOW, Urine Appearance CLEAR, Urine pH 6.0, Urine Specific Virgin 1.006, Urine Protein NEGATIVE, Urine Glucose (UA) NEGATIVE, Urine Ketones NEGATIVE, Urine Blood NEGATIVE, Urine Nitrite NEGATIVE, Urine Bilirubin NEGATIVE, Urine Urobilinogen 0.2, Urine Leukocyte Esterase TRACEH, Urine WBC (Auto) 1, Urine RBC (Auto) 1, Urine Hyaline Casts (Auto) 0, Urine Bacteria (Auto) NEGATIVE, Urine Squamous Epithelial Cells 0, Urine Sperm (Auto) 01/28/21 06:21: Nucleated Red Blood Cells % (auto) 0.0, Anion Gap 4L, Glomerular Filtration Rate > 60.0, Calcium Level 8.3L, Total Bilirubin 0.9, Aspartate Amino Transf (AST/SGOT) 8, Alanine Aminotransferase (ALT/SGPT) 21, Alkaline Phosphatase 92, Total Protein 6.1L, Albumin 3.0L, Albumin/Globulin Ratio 1.0, Triglycerides Level 117, Total Cholesterol 154, LDL Cholesterol 88, Non-HDL Cholesterol (LDL + VLDL) 111, Total HDL Cholesterol 43, Cholesterol/HDL Ratio 3.581 CBC/BMP Laboratory Tests 01/28/21 06:21 Microbiology Microbiology 01/28/21 Urine Culture, Received Pending 01/27/21 Blood Culture - Preliminary, Resulted No growth after 24 hours . All specim... 01/27/21 Blood Culture - Preliminary, Resulted No growth after 24 hours . All specim... Bárbara Alcala MD Jan 28, 2021 16:24
[2021-01-28 20:00] VITALS: BP 135/73
[2021-01-28] MEDS: ATORVASTATIN 20 MG TAB PO SCH (21:16)
[2021-01-29] MEDS: HEPARIN SOD (PORCINE) 5000UNITS/ML 1ML VIAL/SYRINGE SQ SCH (05:59)
[2021-01-29 06:00] VITALS: BP 140/81
[2021-01-29 07:05] LABS: HEMATOCRIT 39.9 % (42.0-52.0); HEMOGLOBIN 13.6 g/dl (13.5-17.5); MEAN CORPUSCULAR HEMOGLOBIN 29.8 pg (27.0-33.0); MEAN CORPUSCULAR HGB CONC 34.1 g/dl (32.0-36.5); MEAN CORPUSCULAR VOLUME 87.5 fl (80.0-96.0); PLATELET COUNT, AUTOMATED 228 10^3/uL (150-450); RED BLOOD COUNT 4.56 10^6/uL (4.30-6.10); WHITE BLOOD COUNT 6.1 10^3/uL (4.0-10.0)
[2021-01-29 07:41] LABS: ALBUMIN 3.1 GM/DL (3.2-5.2); ALT/SGPT 22 U/L (12-78); BILIRUBIN,TOTAL 0.6 MG/DL (0.2-1.0); BLOOD UREA NITROGEN 12 MG/DL (7-18); CALCIUM LEVEL 8.4 MG/DL (8.8-10.2); CARBON DIOXIDE LEVEL 26 MEQ/L (21-32); CHLORIDE LEVEL 110 MEQ/L (98-107); CREATININE FOR GFR 0.98 MG/DL (0.70-1.30); GLOMERULAR FILTRATION RATE > 60.0 (>49); GLUCOSE, FASTING 104 MG/DL (70-100); POTASSIUM SERUM 4.4 MEQ/L (3.5-5.1); SODIUM LEVEL 140 MEQ/L (136-145); TOTAL PROTEIN 6.1 GM/DL (6.4-8.2)
[2021-01-29 09:00] VITALS: BP 160/80
[2021-01-29] MEDS: VITAMIN D 1,000 INTERNATIONAL UNITS TABLET PO SCH (09:39)
[2021-01-29] MEDS: LACTOBACILLUS ACIDOPHILUS CAP (BACID) PO SCH (09:39)
[2021-01-29] MEDS: ASPIRIN 81MG ENTERIC TABLET PO SCH (09:39)
[2021-01-29] MEDS: MULTIVITAMINS/MINERALS THERAP 1 TAB PO SCH (09:39)
[2021-01-29 12:11] LABS: PROLACTIN 5.5 NG/ML (2.1-17.7)
--- NOTE | 2021-01-29 18:46 | DS.PDOC ---
Discharge Summary General Date of Admission Jan 27, 2021 at 03:26 Date of Discharge 01/29/21 Attending Physician: Bárbara Alcala MD Discharge Summary HISTORY OF PRESENT ILLNESS: is a pleasant 60yo male with notable PMHx of htn, hld, bph, c-spine arthritis who was brought to the ED late in the evening on 01/26/21 by his [place] due to altered mental status in the form of acute memory loss. The patient went out around 5 PM to go brush hogging on his property and returned a little after 7 PM. When the patient got back, his reports that he continued to stare at his phone and ask repeatedly "how did I get home?" And "can you tell me what I did today?" Patient's states that he repeated these questions at least 5 times in a 10-minute. He also was complaining of bilateral ankle pain as well as pain over his left knee and feeling as though his right knee was swollen. The patient himself has no memory of brush hogging. After the 10 minutes of repeated questions, patient's felt it was best that he be evaluated in the ED. On presentation the ED, patient reported some associated neck stiffness, left side of the neck more so than the right which resolved at the time of admission and evaluation. He had never had a similar prior episode of acute memory loss. His most recent medication change was adding a blood pressure medication, but he reports that this was over 90 days ago. He denies any recent significant travel, exposure to known sick contacts, tick and/or other insect bites, use of illicit substances or alcohol, or history of seizures. Patient does state that he has some moderate amount of stress related to an activity at [employer] but denies it having any significant effect on his mood. Of note, the patient reports that about a month ago he was working outside on some scaffolding and fell approximately 20 feet to grass and dirt below. He states that a piece of steel fell down with him, and one foot hit the steel while the other impacted the ground. He also got one of his arms caught up as he was falling and has had some tenderness under the right axilla since. HOSPITAL COURSE: See Plan below PAST MEDICAL/ SURGICAL HISTORY: Hypertension Hyperlipidemia BPH Cervical spine arthritis Left hip fracture surgery with hardware placement, 2007 SOCIAL HISTORY: . Lives with his in [facility]. 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 He and his have 2 adopted children. His 95-year-old mother also lives in an adjoining structure to their home. He denies any current or former tobacco product use. He denies any current use of alcohol and quit drinking many years ago with no prior history of alcohol abuse or need for hospitalization due to alcohol intoxication or withdrawal. He reports smoking marijuana in high school but denies any other illegal drug use. FAMILY HISTORY: Father: at 56 years old; lung cancer, smoker / Mother: 95 years old and living; CHF, CKD ALLERGIES: Please see below. DISCHARGE MEDS: sEE BELOW PHYSICAL EXAMINATION: VITAL SIGNS: Please see below GENERAL APPEARANCE: AAOx3, NAD HEENT: Normocephalic, atraumatic. Noninjected, anicteric sclera. PERRLA. EOMI. Oral cavity: MMM. No pharyngeal erythema or exudate appreciated. Neck: No lymphadenopathy appreciated. CARDIOVASCULAR: RRR, Normal S1, S2. 2+ radial pulses bilaterally. LUNGS: CTAB, no w/r/r ABDOMEN: Soft, nontender nondistended. No guarding or rigidity appreciated. No rmoactive bowel sounds throughout. MUSCULOSKELETAL: 5/5 muscle strength testing of upper and lower extremities bilaterally. EXTREMITIES: There is no pitting edema of bilateral lower extremities. There is swelling without significant erythema of both the medial and lateral right malleoli. Good capillary refill. There are no significant visible lacerations over bilateral forearms. There are some isolated scratches on the anterior aspect of the left tan. NEUROLOGICAL: CN 2-12 intact, no sensory or motor deficits. PSYCHIATRIC: Mood and affect appropriate LABORATORY DATA: Please see below. IMAGING: Chest x-ray, 01/26/2021- No radiographic evidence for an acute cardiopulmonary process. Head CT without contrast, 01/26/2021 No acute intracranial abnormality. Bilateral ankle x-ray, 01/27/2021 No fracture or dislocation of the left ankle. Left knee x-ray, 01/27/2021 Soft tissue swelling along the anterior aspect of the left knee, but no fracture or dislocation. EEG: RESULTS PENDING MICROBIOLOGY: Please see below. ASSESSMENT: This is a 60yo male w/ h/o htn, hld, bph, and c-spine arthritis admitted for transient global amnesia. PLAN: #Transient global amnesia r/o 2/2 to seizure -No prior history of seizures, no new head trauma -CTA head neg -unable to do MRI due to pt having hardware -Neuro check neg -No events on tele -EEG ordered for 01/29/21. Discussed the case with neurology. EEG results will be given to the patient's after discharge on his follow-up appointment with neurology. Per Dr. Chu, patient should be advised not to drive until the results of the EEG are given to him. This was discussed in great detail with the patient who understood. #PVCs/questionable trigeminy -Asymptomatic -Seen on telemetry, ECG -Discussed briefly with cardiology consulting software engineer who suggested outpatient follow-up with cardiology for echocardiogram and possible stress test. #Dehydration- resolved -S/p hydration -Cr now wnl, never was RYAN -Continue to encourage fluids, meals. #Right ankle swelling with indeterminate age talus avulsion chip on imaging -Air splint -Discussed case with orthopedic surgery consulting software engineer. Suggested follow up in their clinic and treatment above. Weightbearing as tolerated. -Cleared by PT for home -Tylenol #Hypertension -C/w ACEi, CCB #Hyperlipidemia -statin CODE STATUS: Full code Disposition: discharge home to follow-up with neurology and primary care doctor. Advised not to drive vehicles or operate heavy machinery per neurology. TIME SPENT ON DISCHARGE: 35 minutes. Vital Signs/I&Os Vital Signs Date Time Temp Pulse Resp B/P (MAP) Pulse Ox O2 Delivery O2 Flow Rate FiO2 01/29/21 09:00 50 160/80 01/29/21 06:00 97.2 18 98 Room Air I&O- Last 24 Hours up to 6 AM 01/29/21 06:00 Intake Total 1040 ml Output Total 475 ml Balance 565 ml Laboratory Data Labs 24H Laboratory Tests 2 01/29/21 06:28: Nucleated Red Blood Cells % (auto) 0.0, Anion Gap 4L, Glomerular Filtration Rate > 60.0, Calcium Level 8.4L, Total Bilirubin 0.6, Aspartate Amino Transf (AST/SGOT) 10, Alanine Aminotransferase (ALT/SGPT) 22, Alkaline Phosphatase 87, Total Protein 6.1L, Albumin 3.1L, Albumin/Globulin Ratio 1.0 CBC/BMP Laboratory Tests 01/29/21 06:28 Microbiology Microbiology 01/28/21 Urine Culture - Final, Complete 01/27/21 Blood Culture - Preliminary, Resulted No Growth after 48 hours. All Specime... 01/27/21 Blood Culture - Preliminary, Resulted No Growth after 48 hours. All Specime... Discharge Medications Scheduled Aspirin (Aspirin EC) 81 Mg Tablet.dr, 81 MG PO DAILY, (Reported) Atorvastatin Calcium (Atorvastatin Calcium) 40 Mg Tablet, 40 MG PO QHS, (Reported) Cholecalciferol (Vitamin D3) (Vitamin D3) 1,000 Unit Tablet, 1,000 UNITS PO DAILY, (Reported) Gluc Winston/Chondro Winston A/Vit C/Mn (Glucosamine Chondroitin Tab) 1 Each Tablet, 1 TAB PO DAILY, (Reported) Krill Oil (Krill Oil) 500 Mg Capsule, 500 MG PO DAILY, (Reported) L.acidoph/L.bulg/B.bif/S.therm (Bacid Caplet) 1 Each Tablet, 1 TAB PO DAILY, (Reported) Lisinopril (Lisinopril) 10 Mg Tablet, 10 MG PO QHS, (Reported) Multivitamins (Thera M Plus Tablet) 1 Each Tablet, 1 TAB PO DAILY, (Reported) Saw/Vit E/Sod Kirsten/Lyc/Beta/Pyg (Prostate Health Caplet) 1 Each Tablet, 1 TAB PO DAILY, (Reported) Turmeric Root Extract (Turmeric) 500 Mg Capsule, 500 MG PO DAILY, (Reported) Vitamin E (Vitamin E) 400 Unit Capsule, 400 UNIT PO DAILY, (Reported) Allergies Coded Allergies: bee venom protein (honey bee) (Verified Allergy, Severe, SWELLING/POSSIBLE ANAPHYLAXIS, 01/27/21) Bárbara Alcala MD Jan 29, 2021 18:46
--- NOTE | 2021-01-29 19:30 | ECGEPIP ---
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
== END 2021-01-29 14:15 | disposition home or self-care (01) | DRG 52 ==
LOC: M ED 22:14 → M ED INP 01-27 03:26 → ENRESERV 01-27 12:41 → M MSPAV 01-27 14:19
PROVIDERS: ADMIT Internal Medicine; ATTEND Internal Medicine
DX: G45.4 Transient global amnesia (principal); I10 Essential (primary) hypertension; E78.5 Hyperlipidemia, unspecified; N40.0 Benign prostatic hyperplasia without lower urinary tract symptoms; M47.812 Spondylosis without myelopathy or radiculopathy, cervical region; Z79.82 Long term (current) use of aspirin; Z79.899 Other long term (current) drug therapy; Z91.030 Bee allergy status; Z96.642 Presence of left artificial hip joint; S92.154A Nondisplaced avulsion fracture (chip fracture) of right talus, initial encounter for closed fracture; E86.0 Dehydration; X58.XXXA Exposure to other specified factors, initial encounter; Y92.9 Unspecified place or not applicable; Y99.9 Unspecified external cause status; Y93.9 Activity, unspecified

== ENCOUNTER → 2021-03-27 | Outpatient (CLI) | payer OTHER ==
[~2021-03-27] MED LIST changes: +ASPI-161 PO; +ATOR40TA75 PO; +BACITAB PO; +COMPTAB7 PO; +D31000TA2 PO; +GLUCTAB6 PO; +LISI10TA22 PO; +RA K500C PO; +RA T500C2 PO; +VITA-245 PO; +VITMTA PO
[2021-03-27 10:14] LABS: BLOOD UREA NITROGEN 15 MG/DL (7-18); CALCIUM LEVEL 9.5 MG/DL (8.8-10.2); CARBON DIOXIDE LEVEL 29 MEQ/L (21-32); CHLORIDE LEVEL 106 MEQ/L (98-107); CREATININE FOR GFR 1.06 MG/DL (0.70-1.30); GLOMERULAR FILTRATION RATE > 60.0 (>49); GLUCOSE, FASTING 99 MG/DL (70-100); MAGNESIUM LEVEL 2.2 MG/DL (1.8-2.4); POTASSIUM SERUM 4.6 MEQ/L (3.5-5.1); SODIUM LEVEL 139 MEQ/L (136-145)
== END ==
LOC: M LAB 08:30
PROVIDERS: ATTEND Internal Medicine Cardiovascular Disease
DX: I49.3 Ventricular premature depolarization (principal)

== ENCOUNTER → 2021-04-04 | Outpatient (CLI) | payer OTHER ==
--- NOTE | 2021-04-05 14:38 | SLEEPHOME ---
DATE: 04/04/2021 ORDERED BY: Dr. Cervantes Nocturnal polysomnography was performed for evaluation of this patient who is suspected suffering from the obstructive sleep apnea syndrome in light of a history of snoring. For testing, a NOX T3 respiratory monitoring device was used. Continuous record was made of pulse, oxygen saturation, air flow, chest and abdominal strain, and body position. There was 7 hours and 5 minutes of data reviewed. There was 95 respiratory events identified of 10 seconds in duration or greater for a respiratory event index of 13.4. The events were primarily obstructive. Fifteen mixed and central apneas were noted. Baseline pulse rate 61. Pulse rate ranged 50-81. Baseline saturation 93%. Saturations fell to 87%. Testing was performed in both the supine and nonsupine positions. IMPRESSION: Abnormal home sleep testing with repetitive respiratory events and oxygen desaturations to 87% with a respiratory event index of 13.4 is consistent with the obstructive sleep apnea syndrome. RECOMMENDATION: The patient should be encouraged to undergo formal sleep evaluation.
== END ==
LOC: M SLEEP HO 10:14
PROVIDERS: ATTEND Internal Medicine Cardiovascular Disease
DX: R06.83 Snoring (principal)

== ENCOUNTER → 2021-07-04 | Outpatient (CLI) | payer OTHER ==
[~2021-07-04] MED LIST changes: -D31000TA2 PO; +VITA100093 PO
[2021-07-04 08:51] LABS: BLOOD UREA NITROGEN 16 MG/DL (7-18); CALCIUM LEVEL 9.3 MG/DL (8.8-10.2); CARBON DIOXIDE LEVEL 27 MEQ/L (21-32); CHLORIDE LEVEL 105 MEQ/L (98-107); CREATININE FOR GFR 1.11 MG/DL (0.70-1.30); GLOMERULAR FILTRATION RATE > 60.0 (>49); GLUCOSE, FASTING 102 MG/DL (70-100); POTASSIUM SERUM 4.6 MEQ/L (3.5-5.1); SODIUM LEVEL 137 MEQ/L (136-145)
== END ==
LOC: M LAB 07:15
PROVIDERS: ATTEND Physician Assistant
DX: I10 Essential (primary) hypertension (principal)

== ENCOUNTER → 2022-06-26 | Outpatient (REF) | payer OTHER ==
[~2022-06-26] MED LIST changes: -GLUCTAB6 PO; +GLUCTAB7 PO
[2022-06-26 16:47] LABS: BASO % 0.5 % (0.0-1.0); EOS # 0.3 10^3/uL (0.0-0.5); EOS % 4.4 % (0.0-3.0); HEMATOCRIT 43.4 % (42.0-52.0); HEMOGLOBIN 14.6 g/dl (13.5-17.5); LYMPH # 1.3 10^3/uL (1.5-5.0); LYMPH % 22.8 % (24.0-44.0); MEAN CORPUSCULAR HEMOGLOBIN 29.9 pg (27.0-33.0); MEAN CORPUSCULAR HGB CONC 33.6 g/dl (32.0-36.5); MEAN CORPUSCULAR VOLUME 88.9 fl (80.0-96.0); MONO # 0.5 10^3/uL (0.0-0.8); NEUTROPHILS # 3.7 10^3/uL (1.5-8.5); NEUTROPHILS % 63.8 % (36.0-66.0); PLATELET COUNT, AUTOMATED 285 10^3/uL (150-450); RED BLOOD COUNT 4.88 10^6/uL (4.30-6.10); WHITE BLOOD COUNT 5.7 10^3/uL (4.0-10.0)
[2022-06-26 17:16] LABS: ALBUMIN 3.6 G/DL (3.2-5.2); ALKALINE PHOSPHATASE 95 U/L (46-116); ALT/SGPT 35 U/L (7.0-40); AST/SGOT 19 U/L (<34); BILIRUBIN,TOTAL 0.6 MG/DL (0.3-1.2); BLOOD UREA NITROGEN 15 MG/DL (9-23); CALCIUM LEVEL 8.8 MG/DL (8.3-10.6); CARBON DIOXIDE LEVEL 29 MMOL/L (20-31); CHLORIDE LEVEL 105 MMOL/L (98-107); CREATININE FOR GFR 0.97 MG/DL (0.70-1.30); GLOMERULAR FILTRATION RATE > 60.0 (>49); GLUCOSE, FASTING 88 MG/DL (74-106); POTASSIUM SERUM 4.9 MMOL/L (3.5-5.1); SODIUM LEVEL 140 MMOL/L (136-145); TOTAL PROTEIN 6.2 G/DL (5.7-8.2)
== END ==
LOC: M LAB REF 16:26
PROVIDERS: ATTEND Physician Assistant
DX: I10 Essential (primary) hypertension (principal); E78.00 Pure hypercholesterolemia, unspecified

== ENCOUNTER → 2022-08-09 | Outpatient (REF) | payer OTHER ==
[2022-08-09 17:31] LABS: ALBUMIN 4.2 G/DL (3.2-5.2); BLOOD UREA NITROGEN 20 MG/DL (9-23); CALCIUM LEVEL 8.8 MG/DL (8.3-10.6); CARBON DIOXIDE LEVEL 26 MMOL/L (20-31); CHLORIDE LEVEL 105 MMOL/L (98-107); CREATININE FOR GFR 1.02 MG/DL (0.70-1.30); GLOMERULAR FILTRATION RATE > 60.0 (>49); GLUCOSE, FASTING 95 MG/DL (74-106); PHOSPHORUS LEVEL 2.9 MG/DL (2.4-5.1); POTASSIUM SERUM 4.8 MMOL/L (3.5-5.1); SODIUM LEVEL 139 MMOL/L (136-145)
== END ==
LOC: M LAB REF 16:25
PROVIDERS: ATTEND Physician Assistant
DX: I10 Essential (primary) hypertension (principal)

== ENCOUNTER → 2023-01-10 | Outpatient (REF) | payer OTHER ==
[2023-01-10 13:14] LABS: ALKALINE PHOSPHATASE 107 U/L (46-116); ALT/SGPT 32 U/L (7.0-40); AST/SGOT 20 U/L (<34); BILIRUBIN,TOTAL 0.8 MG/DL (0.3-1.2); BLOOD UREA NITROGEN 16 MG/DL (9-23); CALCIUM LEVEL 9.1 MG/DL (8.3-10.6); CARBON DIOXIDE LEVEL 26 MMOL/L (20-31); CHLORIDE LEVEL 107 MMOL/L (98-107); CHOLESTEROL LEVEL 147 MG/DL (<200); CHOLESTEROL RISK RATIO 3.41 (<5); CREATININE FOR GFR 1.03 MG/DL (0.70-1.30); GLOMERULAR FILTRATION RATE > 60.0 (>49); GLUCOSE, FASTING 115 MG/DL (74-106); POTASSIUM SERUM 4.7 MMOL/L (3.5-5.1); SODIUM LEVEL 139 MMOL/L (136-145); TOTAL PROTEIN 6.7 G/DL (5.7-8.2); TRIGLYCERIDES LEVEL 80 MG/DL (<150)
[2023-01-10 13:15] LABS: THYROID STIMULATING HORMONE 3.043 uIU/ML (0.55-4.78)
[2023-01-10 13:19] LABS: HEMATOCRIT 44.8 % (42.0-52.0); HEMOGLOBIN 15.2 g/dl (13.5-17.5); MEAN CORPUSCULAR HEMOGLOBIN 29.9 pg (27.0-33.0); MEAN CORPUSCULAR HGB CONC 33.9 g/dl (32.0-36.5); MEAN CORPUSCULAR VOLUME 88.2 fl (80.0-96.0); PLATELET COUNT, AUTOMATED 270 10^3/uL (150-450); RED BLOOD COUNT 5.08 10^6/uL (4.30-6.10); WHITE BLOOD COUNT 4.9 10^3/uL (4.0-10.0)
== END ==
LOC: M LAB REF 11:40
PROVIDERS: ATTEND Physician Assistant
DX: I10 Essential (primary) hypertension (principal); E78.00 Pure hypercholesterolemia, unspecified

== ENCOUNTER → 2023-05-20 | Outpatient (REF) | payer OTHER ==
[2023-05-20 17:04] LABS: BASO % 0.4 % (0.0-1.0); EOS # 0.2 10^3/uL (0.0-0.5); EOS % 3.9 % (0.0-3.0); HEMATOCRIT 46.3 % (42.0-52.0); LYMPH % 17.8 % (24.0-44.0); MEAN CORPUSCULAR HEMOGLOBIN 30.4 pg (27.0-33.0); MEAN CORPUSCULAR HGB CONC 34.6 g/dl (32.0-36.5); MONO # 0.6 10^3/uL (0.0-0.8); MONO % 9.7 % (2.0-8.0); NEUTROPHILS # 3.8 10^3/uL (1.5-8.5); NEUTROPHILS % 67.8 % (36.0-66.0); PLATELET COUNT, AUTOMATED 236 10^3/uL (150-450); RED BLOOD COUNT 5.26 10^6/uL (4.30-6.10); WHITE BLOOD COUNT 5.7 10^3/uL (4.0-10.0)
[2023-05-20 17:25] LABS: PSA SCREENING 0.54 NG/ML (< 4.00)
[2023-05-20 17:27] LABS: BLOOD UREA NITROGEN 16 MG/DL (9-23); CALCIUM LEVEL 9.5 MG/DL (8.3-10.6); CARBON DIOXIDE LEVEL 29 MMOL/L (20-31); CHLORIDE LEVEL 107 MMOL/L (98-107); CREATININE FOR GFR 0.97 MG/DL (0.70-1.30); GLOMERULAR FILTRATION RATE > 60.0 (>49); GLUCOSE, FASTING 98 MG/DL (74-106); POTASSIUM SERUM 5.5 MMOL/L (3.5-5.1); SODIUM LEVEL 139 MMOL/L (136-145)
[2023-05-20 17:30] LABS: TESTOSTERONE 482 NG/DL (241-827)
== END ==
LOC: M LAB REF 16:32
PROVIDERS: ATTEND Physician Assistant
DX: I10 Essential (primary) hypertension (principal); N40.1 Benign prostatic hyperplasia with lower urinary tract symptoms; R53.83 Other fatigue; R68.82 Decreased libido

== ENCOUNTER → 2023-06-23 | Outpatient (REF) | payer OTHER ==
[~2023-06-23] MED LIST changes: -ASPI-161 PO; +ASPI-615 PO
[2023-06-23 19:17] LABS: BLOOD UREA NITROGEN 15 MG/DL (9-23); CARBON DIOXIDE LEVEL 26 MMOL/L (20-31); CHLORIDE LEVEL 106 MMOL/L (98-107); GLOMERULAR FILTRATION RATE > 60.0 (>49); GLUCOSE, FASTING 99 MG/DL (74-106); POTASSIUM SERUM 5.5 MMOL/L (3.5-5.1); SODIUM LEVEL 138 MMOL/L (136-145)
== END ==
LOC: M LAB REF 18:03
PROVIDERS: ATTEND Physician Assistant
DX: N40.1 Benign prostatic hyperplasia with lower urinary tract symptoms (principal); R53.83 Other fatigue

== ENCOUNTER → 2024-05-20 | Outpatient (REF) | payer MEDICARE, OTHER ==
[2024-05-20 14:23] LABS: HEMATOCRIT 43.9 % (42.0-52.0); HEMOGLOBIN 15.1 g/dl (13.5-17.5); MEAN CORPUSCULAR HEMOGLOBIN 29.9 pg (27.0-33.0); MEAN CORPUSCULAR HGB CONC 34.4 g/dl (32.0-36.5); MEAN CORPUSCULAR VOLUME 86.9 fl (80.0-96.0); PLATELET COUNT, AUTOMATED 227 10^3/uL (150-450); RED BLOOD COUNT 5.05 10^6/uL (4.30-6.10)
[2024-05-20 14:46] LABS: ALBUMIN 3.8 G/DL (3.2-5.2); ALKALINE PHOSPHATASE 108 U/L (40-129); ALT/SGPT 33 U/L (7.0-40); AST/SGOT 16 U/L (<34); BLOOD UREA NITROGEN 17 MG/DL (9-23); CARBON DIOXIDE LEVEL 27 MMOL/L (20-31); CHLORIDE LEVEL 103 MMOL/L (98-107); CHOLESTEROL LEVEL 164 MG/DL (<200); CHOLESTEROL RISK RATIO 3.79 (<5); CREATININE FOR GFR 0.96 MG/DL (0.70-1.30); GLOMERULAR FILTRATION RATE > 60.0 (>49); GLUCOSE, FASTING 104 MG/DL (74-106); HDL CHOLESTEROL 43.2 MG/DL (>40); LDL CHOLESTEROL 93.8 MG/DL (<100); NON-HDL-C 120.8 MG/DL; POTASSIUM SERUM 4.9 MMOL/L (3.5-5.1); SODIUM LEVEL 140 MMOL/L (136-145); TOTAL PROTEIN 6.7 G/DL (5.7-8.2); TRIGLYCERIDES LEVEL 135 MG/DL (<150)
== END ==
LOC: M LAB REF 13:15
PROVIDERS: ATTEND Physician Assistant
DX: I10 Essential (primary) hypertension (principal)